=== PATIENT | female | born 1985 | race Caucasian/White ===

== ENCOUNTER 2019-12-22 17:26 | Emergency (ER) | payer MEDICAID ==
[2019-12-22 17:52] VITALS: BP 146/97
--- NOTE | 2019-12-22 18:48 | ED Physician Documentation ---
PD HPI URI - Stated complaint Stated Complaint: SOA - Chief complaint Chief Complaint: Resp - History obtained from History obtained from: Patient - History of Present Illness Pain level max: 5 Pain level now: 0 Associated symptoms: Fever (Last week, none now), Dry cough, Dyspnea (Wheezing) Contributing factors: Sick contact (Several people sick with similar) Recently seen: Not recently seen - Additional information Additional information: 34-year-old female presents to the emergency department with a cough for the past week. Has a history of asthma. Has an albuterol inhaler, but only uses it once per day. She does not use a spacer. Occasionally she feels like she is short of breath. Is not on any steroids. Gets intermittent sharp chest pain. Her albuterol inhaler does help when she feels short of breath. Nothing makes this worse. Denies any possibility of . Is not breast-feeding. She was already tested for coronavirus. She states last week that she had body aches, but these are improving. Review of Systems Respiratory: reports: Cough GI: denies: Abdominal Pain, Vomiting, Diarrhea : denies: Dysuria, Frequency, Hesitancy, Now EGA Skin: denies: Rash Musculoskeletal: denies: Neck pain, Back pain Neurologic: denies: Headache PD PAST MEDICAL HISTORY - Past Medical History Past Medical History: Yes Respiratory: Asthma - Present Medications Home Medications: Ambulatory Orders Medication Instructions Recorded Confirmed Benzonatate [Tessalon Perle] 100 - 200 mg PO TID PRN #30 capsule 12/22/19 - Allergies Allergies/Adverse Reactions: Allergies Allergy/AdvReac Type Severity Reaction Status Date / Time Influenza Virus Vaccines Allergy Unknown Verified 12/22/19 17:52 Penicillins Allergy Anaphylaxis Verified 12/22/19 17:52 - Social History Does the pt smoke?: No Smoking Status: Never smoker PD ED PE NORMAL - Vitals Vital signs reviewed: Yes - General General: Alert and oriented X 3, No acute distress, Well developed/nourished - HEENT HEENT: Ears normal, Moist mucous membranes, Pharynx benign - Neck Neck: Supple, no meningeal sign, No adenopathy - Cardiac Cardiac: RRR - Respiratory Respiratory: No respiratory distress, Other (Mild wheezing bilaterally, Coarse breath sounds throughout) - Abdomen Abdomen: Soft, Non tender, Non distended - Back Back: No CVA TTP - Derm Derm: Warm and dry, No rash - Extremities Extremities: No edema, No calf tenderness / cord - Neuro Neuro: Alert and oriented X 3 - Psych Psych: Normal mood, Normal affect Results - Vitals Vitals: Vital Signs - 24 hr 12/22/19 17:40 Temperature 37 C Heart Rate 110 H Respiratory 24 Rate Blood Pressure 146/97 H O2 Saturation 98 Oxygen O2 Source Room air - EKG (time done) 1838 Rate: Rate (enter#) (86) Rhythm: NSR Bradley: Normal Intervals: Normal [place] QRS: Normal Ischemia: Normal ST segments - Rads (name of study) cxr Radiology: Prelim report reviewed, EMP read contemporaneously, See rad report (No acute disease) PD MEDICAL DECISION MAKING - ED course Complexity details: reviewed results, re-evaluated patient, considered diffe rential, d/w patient ED course: 34-year-old female presents the emergency department with what appears to be a viral upper respiratory infection. She is well-appearing, nontoxic. Afebrile. No hypoxia. No respiratory distress. No pneumonia. Normal chest x-ray. She was concerned about her chest pain, normal EKG. No evidence of pulmonary embolism. She does not smoke. No evidence of acute coronary syndrome. We will continue supportive care. A spacer was given along with teaching. Patient counseled regarding signs and symptoms for which I believe and urgent re- evaluation would be necessary. Patient with good understanding of and agreement to plan and is comfortable going home at this time This document was made in part using voice recognition software. While efforts are made to proofread this document, sound alike and grammatical errors may occur. Departure - Departure Disposition: 01 Home, Self Care Clinical Impression: Upper respiratory tract infection Qualifiers: URI type: unspecified viral URI Qualified Code(s): J06.9 - Acute upper respiratory infection, unspecified Condition: Good Instructions: ED Reactive Airway Disease, ED URI Viral W Wheezing Follow-Up: SOUMYA MAURER, MSN, INJECTION MAINTENANCE TECHNICIAN [Credentialed Staff Provider] - Prescriptions: Benzonatate [Tessalon Perle] 100 - 200 mg PO TID PRN #30 capsule PRN Reason: Cough Comments: Return if you worsen. Your x-ray and EKG are normal today. Follow-up with your doctor for further care. Use the spacer and inhaler as prescribed.
--- NOTE | 2019-12-22 19:26 | XRAY Report ---
Reason: cough Procedure Date: 12/22/2019 Accession Number: [id number] / [id number] Procedure: XR - Chest 1 View X-Ray CPT Code: 90547 Final Report FULL RESULT: EXAM: CHEST RADIOGRAPHY EXAM DATE: 12/22/2019 07:05 PM. CLINICAL HISTORY: Cough. Chest pain and shortness of breath. Symptoms for 1 week. COMPARISON: None. TECHNIQUE: Upright AP view. FINDINGS: Lungs/Pleura: No focal opacities evident. No peribronchial cuffing or interstitial abnormality. No pleural effusion. No pneumothorax. Mediastinum: Within exam limitations, the cardiomediastinal contour is normal. Other: None. IMPRESSION: Normal single view chest. RADIA
== END 2019-12-22 19:12 | disposition home or self-care (01) ==
LOC: ED 17:26
DX: J06.9 Acute upper respiratory infection, unspecified (principal); R05 Cough; R50.9 Fever, unspecified
CPT/HCPCS: 71045; 81599; 93005; 99283; 99284

== ENCOUNTER 2019-12-22 17:33 | Outpatient (CLI) | payer MEDICAID | END 2019-12-22 17:34 | disposition home or self-care (01) | LOC: COV 17:33 | PROVIDERS: ATTEND Family Medicine | DX: R05 Cough (principal); R50.9 Fever, unspecified | CPT/HCPCS: 81599 ==

== ENCOUNTER 2024-04-15 16:37 | Emergency (ER) | payer SELFPAY ==
[2024-04-15 16:57] VITALS: BP 126/80; O2SAT 99
--- NOTE | 2024-04-15 17:46 | ED Physician Documentation ---
PD HPI LOWER EXT INJURY - Stated complaint Stated Complaint: GLF - Chief complaint Chief Complaint: Trauma Ext - History obtained from History obtained from: Patient - Additional information Additional information: Cleaning the tub earlier this morning and fell directly on both knees with a pop in the left knee and more severe pain in the left knee than the right but both hurt. She is not able to walk on the left. No other injuries. 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 - Present Medications Home Medications: Ambulatory Orders Medication Instructions Recorded Confirmed Benzonatate [Tessalon Perle] 100 - 200 mg PO TID PRN #30 capsule 12/22/19 Hydrocodone/Acetaminophen 10 ml PO Q6H PRN #120 ml 04/15/24 [Hydrocodone-Acetamn 7.5-325/15] - Allergies Allergies/Adverse Reactions: Allergies Allergy/AdvReac Type Severity Reaction Status Date / Time Influenza Virus Vaccines Allergy Unknown Verified 04/15/24 16:43 Penicillins Allergy Anaphylaxis Verified 04/15/24 16:43 - Social History Does the pt smoke?: No Smoking Status: Never smoker Does the pt drink ETOH?: No Does the pt have substance abuse?: No - Immunizations Immunizations are current?: No PD ED PE NORMAL - Vitals Vital signs reviewed: Yes - General General: Alert and oriented X 3, No acute distress - Extremities Extremities: Other (Neither knee is specifically tender but she has pain with ACL testing of both, but no laxity of either. Positive grind testing on the left, not the right. No effusions.) Results - Vitals Vitals: Vital Signs - 24 hr 04/15/24 16:43 Temperature 36.4 C L Heart Rate 95 Respiratory 16 Rate Blood Pressure 126/80 O2 Saturation 99 Oxygen O2 Source Room air - Rads (name of study) 4 view x-rays of bilateral knees were negative Relevant Findings:: Final report received, EMP independent interpretation of test PD Medical Decision Making - ED course ED course: She has bilateral knee pain after a fall, left hurts worse than the right with more concerning exam there. Relevant x-rays of both knees were negative. I am somewhat more worried about an internal derangement of the left knee and she is placed in a knee brace locked at 30 degrees and she was able to ambulate with a walker. Initially declined pain medication but prior to discharge did request something for pain noting that she can only take liquid medications. Departure - Departure Disposition: 01 Home, Self Care Clinical Impression: Internal derangement of right knee, Internal derangement of left knee Condition: Good Record reviewed to determine appropriate education?: Yes Instructions: ED Meniscal Injury Knee Poss, ED Knee Injury Cruciate Ligament Follow-Up: [facility] [Provider Group] Prescriptions: Hydrocodone/Acetaminophen [Hydrocodone-Acetamn 7.5-325/15] 10 ml PO Q6H PRN #120 ml PRN Reason: Pain Comments: You were seen today for injuries of both knees, the left seemingly worse than the right. I do worry about the ligaments and meniscus in your left knee. To that end it is okay to walk and bear weight on it as tolerated with the expectation that it will hurt, and we would like you to use the locked knee brace. Follow-up with the orthopedist in a week especially if not improved. You should call Thursday for an appointment. Return for new or worsening symptoms. Forms: PCP List Discharge Date/Time: 04/15/24 19:55
[2024-04-15] MEDS: KETOROLAC 60 MG/2 ML VIAL IM STA (19:22)
--- NOTE | 2024-04-15 19:28 | XRAY Report ---
PROCEDURE: Knee 4+V BL INDICATIONS: Trauma TECHNIQUE: 4 views each of the right and left knees. COMPARISON: None. FINDINGS: Bones: No acute fractures or dislocations. No suspicious bony lesions. Soft tissues: No knee joint effusion. No suspicious soft tissue calcifications. IMPRESSION: No acute osseous abnormality. If there is clinical concern or persistent symptoms, additional imaging such as repeat radiographs or advanced imaging (e.g. CT, MRI) may be helpful for further evaluation. Reviewed by: Zohaib Givens MD on 04/15/2024 7:27 PM PDT Approved by: Zohaib Givens MD on 04/15/2024 7:27 PM PDT Station ID: [id number]
== END 2024-04-15 19:55 | disposition home or self-care (01) ==
LOC: ED 16:37
DX: M23.92 Unspecified internal derangement of left knee (principal); M23.91 Unspecified internal derangement of right knee; W19.XXXA Unspecified fall, initial encounter; Y93.E9 Activity, other interior property and clothing maintenance; Y92.002 Bathroom of unspecified non-institutional (private) residence as the place of occurrence of the external cause
CPT/HCPCS: 96372; 99283; 99284